=== PATIENT | female | born 1980 | race Caucasian/White ===

== ENCOUNTER 2018-01-10 13:36 | Emergency (ER) | payer MEDICAID ==
[~2018-01-10] VITALS: Ht 162.6 cm; Wt 117.9 kg
[2018-01-10 13:36] VITALS: BP_SYST 146
[2018-01-10] MEDS ORDERED: traMADol HCL HCL 50 MG TABLET (ULTRAM) PO ONE (14:15)
[2018-01-10 15:08] VITALS: BP_SYST 134
== END 2018-01-10 15:08 | disposition home or self-care (01) ==
LOC: SED 13:36
DX: G43.909 Migraine, unspecified, not intractable, without status migrainosus (principal); E66.01 Morbid (severe) obesity due to excess calories; Z68.41 Body mass index [BMI] 40.0-44.9, adult; Z88.6 Allergy status to analgesic agent
CPT/HCPCS: 99281